=== PATIENT | male | born 1970 | race Caucasian/White ===

== ENCOUNTER 2022-11-16 19:44 | Emergency (ER) | payer MEDICAID ==
[~2022-11-16] VITALS: Ht 170.2 cm; Wt 88.6 kg
[~2022-11-16 19:44] MED LIST: ALPR0.252 PO; NO HOME MEDS
[2022-11-16 19:56] VITALS: BP 173/88
[2022-11-16] MEDS ORDERED: insulin regular, human 10 units/0.1 ml syringe SQ ONE (22:20)
--- NOTE | 2022-11-16 22:24 | NUR ---
pt med cleared by for incarseration
== END 2022-11-16 22:27 ==
LOC: ER 19:44
DX: E11.9 Type 2 diabetes mellitus without complications; V89.9XXA Person injured in unspecified vehicle accident, initial encounter; Y93.89 Activity, other specified; Y92.89 Other specified places as the place of occurrence of the external cause; Y99.8 Other external cause status
CPT/HCPCS: 82948; 96372; 99283; J1815

== ENCOUNTER 2022-11-17 03:00 | Emergency (ER) | payer MEDICAID ==
[~2022-11-17] VITALS: Ht 170.2 cm; Wt 86.2 kg
--- NOTE | 2022-11-17 03:54 | NUR ---
patient refuses all labs and IV start. patient states he does not want anything to do with needles. patient was informed we will only be able to provide very limited medical diagnostics, aware we have very limited medical evaluation without this information and potential medical issues could be missed. patient verbalizes understanding, he states he is feeling fine and not concerned. Provider notified of this patient refusal.
[2022-11-17 04:11] VITALS: BP 158/91
--- NOTE | 2022-11-17 04:21 | NUR ---
Patient has signed against medical advice. Patient is alert, oriented to all spheres, ambulatory with steady gait.
== END 2022-11-17 04:23 | disposition left against medical advice (07) ==
LOC: ER 03:01
DX: R00.0 Tachycardia, unspecified (principal); I10 Essential (primary) hypertension; E11.9 Type 2 diabetes mellitus without complications; F41.9 Anxiety disorder, unspecified; Z88.8 Allergy status to other drugs, medicaments and biological substances
CPT/HCPCS: 71045; 93005; 99283; 99284